=== PATIENT | male | born 1975 | race Caucasian/White ===

== ENCOUNTER → 2018-04-25 | Outpatient (CLI) | payer OTHER | LOC: BRMIMAGING 11:54 | PROVIDERS: ATTEND Physician Assistant | DX: R07.81 Pleurodynia (principal); R91.8 Other nonspecific abnormal finding of lung field; J98.11 Atelectasis | CPT/HCPCS: 71046-PO ==

== ENCOUNTER → 2018-11-12 | Outpatient (CLI) | payer OTHER | LOC: BRMIMAGING 11:27 | PROVIDERS: ATTEND Physician Assistant | DX: R91.8 Other nonspecific abnormal finding of lung field (principal) | CPT/HCPCS: 71046-PO ==